=== PATIENT | female | born 1965 | race Caucasian/White ===

== ENCOUNTER 2016-09-10 22:56 | Emergency (ER) | payer MEDICAID ==
[~2016-09-10] VITALS: Ht 170.2 cm; Wt 77.1 kg
[~2016-09-10 22:56] MED LIST: METFORMIN; NORCO; SOMA; XANAX
[2016-09-11 01:06] VITALS: BP 161/84
[2016-09-11] MEDS ORDERED: cefTRIAXone SOD 1,000 MG VL IM ONE (02:30)
[2016-09-11] MEDS ORDERED: HYDROcodone-ACET 10/325MG TAB PO ONE (02:30)
== END 2016-09-11 03:11 | disposition home or self-care (01) ==
LOC: ER 23:07
DX: E11.69 Type 2 diabetes mellitus with other specified complication (principal); M86.9 Osteomyelitis, unspecified; K21.9 Gastro-esophageal reflux disease without esophagitis; F17.210 Nicotine dependence, cigarettes, uncomplicated; M19.90 Unspecified osteoarthritis, unspecified site; Z79.84 Long term (current) use of oral hypoglycemic drugs; Z88.6 Allergy status to analgesic agent; Z88.8 Allergy status to other drugs, medicaments and biological substances
CPT/HCPCS: 73140; 96372; 99284; J0696

== ENCOUNTER 2016-12-21 18:29 | Emergency (ER) | payer MEDICAID ==
[~2016-12-21] VITALS: Ht 170.2 cm; Wt 77.1 kg
[2016-12-21 19:04] VITALS: BP 149/89
[2016-12-21] MEDS ORDERED: HYDROcodone-ACET 10/325MG TAB PO ONE (20:45)
== END 2016-12-21 21:00 | disposition home or self-care (01) ==
LOC: ER 18:29
DX: G89.4 Chronic pain syndrome (principal); G89.29 Other chronic pain; M54.9 Dorsalgia, unspecified; M19.90 Unspecified osteoarthritis, unspecified site; E11.9 Type 2 diabetes mellitus without complications; K21.9 Gastro-esophageal reflux disease without esophagitis; F17.210 Nicotine dependence, cigarettes, uncomplicated; Z88.8 Allergy status to other drugs, medicaments and biological substances